=== PATIENT | female | born 1980 | race Hispanic/Latino ===

== ENCOUNTER 2018-07-20 09:18 | Emergency (ER) | payer SELFPAY ==
[~2018-07-20] VITALS: Ht 147.3 cm; Wt 77.1 kg
--- OUTSIDE RECORDS SUMMARY | 2018-07-20 09:20 | XMS REPORT ---
Author Author [facility] Address Unknown Phone Unavailable Care Team Providers Care Rehabilitation Services Manager Name Role Phone Unavailable Unavailable Payers Payer Name Policy Type Policy Number Effective Date Expiration Date Problems This patient has no known problems. Allergies, Adverse Reactions, Alerts Allergy Name Allergy Type Status Severity Reaction(s) Onset Date Inactive Date Treating Clinician Comments No Known Allergies DA Active U 2014-01-31 00:00:00 Medications This patient has no known medications.
[2018-07-20] MEDS ORDERED: SODIUM CHLORIDE 0.9% 1000ML 1,000 ML IV SCH (10:30)
--- NOTE | 2018-07-20 11:45 | Diagnostic Imaging Report ---
EXAMINATION: CT of the abdomen and pelvis with contrast. TECHNIQUE: Spiral CT images of the abdomen and pelvis were performed from the lung bases to the lesser trochanters after the intravenous administration of 50 cc of Isovue 370. Coronal and sagittal reformatted images were obtained. Dose sparing technology was utilized. DLP: 779.13 mGy-cm COMPARISON: None. CLINICAL HISTORY:Left-sided abdominal pain DISCUSSION: ABDOMEN/PELVIS: LOWER THORAX:Unremarkable. HEPATOBILIARY: No focal hepatic lesions. No intra-or extrahepatic biliary ductal dilation. The gallbladder is absent. SPLEEN: No splenomegaly. PANCREAS: No focal masses or ductal dilatation. ADRENALS: No adrenal nodules. KIDNEYS/URETERS: No hydronephrosis, stones, or solid mass lesions. Small hypodensity in the lower pole of the left kidney is too small to characterize but likely a cyst. PELVIC ORGANS/BLADDER: The bladder is normal. There are two small hypodensities in the region of the left ovary likely [employer] of small cysts versus follicles. This could be confirmed with transvaginal ultrasound if clinically warranted. PERITONEUM/RETROPERITONEUM: No free air or fluid. LYMPH NODES: No intra-abdominal, retroperitoneal, pelvic or inguinal lymphadenopathy.1 VESSELS: The celiac trunk,superior and inferior mesenteric and bilateral renal arteries are patent. The portal, superior mesenteric and splenic veins are patent. Prominent left gonadal vein. GI TRACT: No distention or wall thickening. The appendix is normal. BONES AND SOFT TISSUE: No bony destructive lesions. No soft tissue abnormalities. IMPRESSION: 1. Likely small left ovarian cysts versus follicles may be a source of pain. 2. Prominent left gonadal vein. Signed by: Dr. Adis Nevarez DO on 07/20/2018 11:42 AM
[2018-07-20] MEDS ORDERED: IBUPROFEN 600 MG TAB PO STA (12:08)
== END 2018-07-20 12:45 | disposition home or self-care (01) ==
LOC: FSED 09:18
DX: R10.32 Left lower quadrant pain (principal); R03.0 Elevated blood-pressure reading, without diagnosis of hypertension
CPT/HCPCS: 74177; 80053; 80307; 81003; 81025; 85025; 99284